=== PATIENT | female | born 1935 | race Caucasian/White ===

== ENCOUNTER 2020-07-07 06:48 | Day surgery (SDC) | payer OTHER, SELFPAY ==
[2020-07-07] VITALS (7 sets, daily range): BP systolic 121–148; BP diastolic 62–76; PULSE 67–78; RESP 14–20; TEMP 35.9–36.6; O2SAT 95–100; BMI 19.5
--- NOTE | 2020-07-07 | DI.RAD.S_ITS ---
PROCEDURE: XR THORACIC SPINE 2V INDICATIONS: T 8 AND T 10 KYPHOPLASTY TECHNIQUE: 2 views of the thoracic spine were acquired. COMPARISON: None. FINDINGS: Expected postprocedural changes compatible with T8 and T9 kyphoplasty. No extravasation of barium contrasted methylmethacrylate into the paraspinous soft tissues. IMPRESSION: Expected postprocedural change for T8 and T10 kyphoplasty. Dictated by: Jelena Humphrey MD, PhD on 07/07/2020 at 17:14 Approved by: Jelena Humphrey MD, PhD on 07/07/2020 at 17:18
--- NOTE | 2020-07-07 | PATH_ITS ---
[facility] Accession Number: [id number] . 01 Material submitted: . PART A: bone - T10 VERTEBRAL BODY BIOPSY PART B: bone - T8 VERTEBRAL BODY BIOPSY . 01 Diagnosis: A. Bone, T10 Vertebral Body, Biopsy: Trabecular bone with new bone formation and hematopoietic elements with minute lymphoid aggregate. Negative for malignancy. . B. Bone, T8 Vertebral Body, Biopsy: Trabecular bone with focal osteonecrosis, new bone formation and marrow fibrosis. Negative for malignancy. MRV 07/13/2020 1459 Local . 01 Comment: This case is also reviewed by hematopathologist, Dr. Lina Brice, who concurs with the given interpretation. . 01 Electronically signed: . Janelle Portillo MD, Pathologist NPI- [id number] . 01 Gross description: . A. Received in formalin, labeled T10 vertebral body, and consists of multiple red-brown fragments of bone measuring 1.5 x 1.0 x 0.2 cm in aggregate. The specimen is filtered and entirely submitted following decalcification in cassette A1. B. Received in formalin, labeled T8 vertebral body, and consists of a 0.9 cm in length by 0.3 cm in diameter cortez fragment of bone, which is entirely submitted following decalcification in cassette B1. ([id number]) /MRV 07/09/2020 1447 Local . 01 Pathologist provided ICD-10: S22.060A, S22.070A . 01 CPT . 743534, 806377, 560926, 891976 Performed at: 01 [facility] [address] [address] [place] [address] [address], [place], [place] [id number] MD David Steven MD Phone: [phone]
[2020-07-07 08:30] LABS: COVID19 -Nasal RAPID Negative (Negative)
--- NOTE | 2020-07-07 08:58 | PM.PREOP ---
Pre-operative Note COVID-19 COVID-19 status: Negative Result date/Date tested (Pos, Neg/Pending): 07/07/20 Interval Note History & Physical reviewed/Exam performed by Physician: Yes Changes to H&P: No
[2020-07-07] MEDS: CLINDAMYCIN 900 MG/50 ML PIGGYBACK 50 MG IV (09:25)
--- NOTE | 2020-07-07 09:50 | SUR.OPER ---
Prone on padded OR bed, head in foam head support, gel chest rolls, gel pad under knees, pillow under lower legs, toes free of pressure, arms secured on padded arm boards at <90 degrees abduction. Safety belt at thigh.
[2020-07-07] MEDS: BUPIVACAINE 0.25% W/ EPI (PF) 10 ML VIAL 20 ML INJ (09:57)
--- NOTE | 2020-07-07 10:13 | PM.OP.1 ---
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 They had failed conservative management and requested operative intervention. Risks and benefits of surgery were discussed and appropriate consents were obtained. Surgeon: Eulogio Carter Click Yes if Unassisted: Yes Anesthesia Type: General Operative Notes Findings: None Closure Type: primary Specimen(s): other (T8 and T10 vertebral body biopsies) Estimated Blood Loss (mL): 5 Procedure in detail: The patient was brought to the operating room and intubated on the table. They were then rolled over to the well-padded prone position. Time-out was performed. We confirmed positioning with two fluoroscopy views. The back was prepped and draped in the standard sterile fashion. Preoperative antibiotics were given. Using fluoroscopic guidance, the planned incision site was infiltrated with Marcaine with epinephrine and injected down to the entry site of the left pedicles of T8 and T10. A small stab incision was made and we advanced a Jamshiedi needle down the left pedicles into the vertebral bodies. A bone biopsy was harvested from this and sent to pathology. We then passed the DFine osteotome and opened it up to create a void inside the vertebral bodies. We then began injecting the cement. This was done with frequent fluoroscopy imaging. There was some slight inferior extravasation at T8 and we stopped injecting and moved down to T10. We injected T10 and fill the vertebral body. There was no extravasation. Once we had good fill of the T10 vertebral body the injection was stopped. We went back up to T8. The cement had plugged the inferior extravasation and the remainder of the cement stayed well within the bone. Once we had good fill of T8 the trocars were removed. Final x-rays were taken. The wound was cleaned. Steri-Strips and sterile dressing were placed. Patient was rolled over, extubated, and brought to recovery without complications. Complications: none Post-operative Condition: stable Disposition: PACU Plan for aftercare: Outpatient. Activity as tolerated
== END 2020-07-07 11:17 | disposition home or self-care (01) ==
PROVIDERS: PCP Nurse Practitioner Family; Referring Provider Nurse Practitioner Family; Visit Provider Orthopaedic Surgery
PROC: (CPT 22513; principal; 2020-07-07 08:45)
DX: M80.08XA Age-related osteoporosis with current pathological fracture, vertebra(e), initial encounter for fracture (principal); M54.6 Pain in thoracic spine; M48.00 Spinal stenosis, site unspecified; D46.9 Myelodysplastic syndrome, unspecified; Z01.812 Encounter for preprocedural laboratory examination; Z20.828 Contact with and (suspected) exposure to other viral communicable diseases
CPT/HCPCS: 22513; 22515; 72070; 76000; 87635; C1776; J0330; J1100; J2250; J2405; J2704; J3010

== ENCOUNTER → 2021-02-11 13:15 | Outpatient (CLI) | payer MEDICARE, SELFPAY ==
--- NOTE | 2021-02-11 | DI.ECHO.S_ITS ---
[place] [facility]---------+ [facility] +---------+ : : [address] : : : : [id number] : : : : Phone: [phone]---------+ Echocardiogram Report + + :Name: RANDI ADAMS Study Date: 02/11/2021 Height: 62 in : :[facility] ReadingLocation: Weight: 100 lb : : Gender: Female BSA: 1.4 m2 : :: 1935 Age: 85 yrs BP: 159/82 mmHg: :Reason For Study: Mitral Valve- Prolapse : :Ordering Physician: Susan : :Kel Starkey Performed By: Kike Rogers : :Referring: SUSAN STARKEY : + + Interpretation Summary 1) Normal left ventricular thickness, size, wall motion, and systolic function (EF 60-65%). 2) Normal right ventricular size and function. 3) Mitral valve leaflets are thicknened but no prolapse noted (image quality suboptimal). No significant stenosis or regurgitation present. 4) No prior Echo available for comparison. Procedure: A two-dimensional transthoracic echocardiogram with color flow and Doppler was performed. The study quality was technically adequate. There is no prior echocardiogram noted for this patient. Left Ventricle: The left ventricle is normal in size and wall thickness. Left ventricular systolic function is normal. The ejection fraction is estimated to be 60-65%. There are no focal wall motion abnormalities. Diastolic parameters suggest a relaxation abnormality of the left ventricle, consistent with probable normal filling pressures. Right Ventricle: The right ventricle is normal in size and function. Atria: The left atrium is not well visualized. The left atrium grossly appears normal in size. Right atrial size is normal. Mitral Valve: The mitral valve leaflets appear significantly thickened, but open well. There is no mitral regurgitation noted. Aortic Valve: The aortic valve is normal in structure and function. There is no aortic valve stenosis. No aortic regurgitation is present. Tricuspid Valve: The tricuspid valve is normal in structure and function. There is mild tricuspid regurgitation. The right ventricular systolic pressure is estimated to be at least 32 mmHg based on an estimated right atrial pressure of 3 mm Hg. Pulmonic Valve: The pulmonic valve is not well visualized. There is no pulmonic valvular regurgitation. Great Vessels: The aortic root is normal size. The ascending aorta could not be visualized. The IVC is of normal diameter and collapses greater than 50% with a sniff. This suggests a low right atrial pressure of 3 mm Hg. Pericardium/ Pleura There is no pericardial effusion. There is no pleural effusion. MMode/2D Measurements & Calculations LVIDd: 3.6 cm LVOT diam: 1.9 cm LVIDs: 2.4 cm Ao root diam: 2.6 cm FS: 32.4 % IVSd: 0.90 cm LVPWd: 0.90 cm LV charles. diameter/BSA (cm/m^2): 2.5 LV sys. diameter/BSA (cm/m^2): 1.7 LA dimension: 2.8 cm RA long axis: 3.8 cm LA A2 area: 15.5 cm2 RA area: 12.5 cm2 LA A4 area: 14.5 cm2 RA vol: 35.2 ml LA length (vol): 5.2 cm RA : 24.7 ml/m2 LA vol: 36.2 ml LA vol index: 25.4 ml/m2 RVD1 (basal): 2.6 cm TAPSE_phl: 2.4 cm Doppler Measurements & Calculations Ao V2 max: 146.0 cm/sec LVOT Max Jovon: 123.0 cm/sec Ao V2 mean: 103.0 cm/sec LV V1 max P.1 mmHg Ao max P.0 mmHg LV V1 VTI: 24.2 cm Ao mean P.0 mmHg ARASELI(I,D): 2.7 cm2 Ao V2 VTI: 25.7 cm ARASELI(V,D): 2.4 cm2 sev ratio: 0.94 ARASELI indexed to BSA (cm^2/m^2): 1.9 MV E max jovon: 81.5 cm/sec TR max jovon: 270.0 cm/sec MV A max jovon: 137.0 cm/sec TR max P.2 mmHg MV E/A: 0.59 PA V2 max: 118.0 cm/sec Med Peak E' Jovon: 5.7 cm/sec PA V2 mean: 79.2 cm/sec E/E' med: 14.3 PA mean P.0 mmHg Lat Peak E' Jovon: 5.4 cm/sec PA pr(Accel): 50.6 mmHg E/E' lat: 15.0 E/e' average: 14.7 MV dec time: 0.52 sec MV P1/2t: 170.7 msec MVA(VTI): 2.1 cm2 MV V2 mean: 94.9 cm/sec MV P1/2t max jovon: 90.9 cm/sec MV mean P.0 mmHg MVA(P1/2t): 1.3 cm2 MV V2 VTI: 32.0 cm SV(LVOT): 68.6 ml AV VR_phl: 0.84 ARASELI(VTI)/BSA_phl: 1.9 MV P1/2t-pr_phl: 162.0 msec Reading Physician:11:11 AM
== END ==
PROVIDERS: PCP Family Medicine; Referring Provider Internal Medicine Cardiovascular Disease; Visit Provider Internal Medicine Cardiovascular Disease
DX: I34.1 Nonrheumatic mitral (valve) prolapse (principal); I07.1 Rheumatic tricuspid insufficiency
CPT/HCPCS: 93306